=== PATIENT | male | born 1940 | race Caucasian/White ===

== ENCOUNTER 2017-02-18 07:10 | Day surgery (SDC) | payer BC ==
--- NOTE | ~2017-02-18 | EGD ---
EGD REPORT [facility] [address] [id number] NAME: KALEY DICKINSON : [birth year] STATUS : REG [facility] [place]#: [id number] AGE: 76 ADM/REG DATE : 02/18/17 MR#: [id number] REPORT SERV DATE: 02/18/17 DICTATED BY: KALEY LYONS DATE: 02/18/17 REPORT STATUS : Draft TRANSCRIBED BY: [facility] DATE: 02/18/17 [facility] Patient Name: Kaley Dickinson Date of : 1940 Attending MD: KALEY LYONS MD Procedure Date No Time: 02/18/2017 Procedure: Colonoscopy Indications: High risk colon cancer surveillance: Personal history of colonic polyps Referring MD: CHARISSA SOMMER Medicines: as per anesthesia Complications: No immediate complications. Procedure: Pre-Anesthesia Assessment: - ASA Grade Assessment: III - A patient with severe systemic disease. After I obtained informed consent, the scope was passed under direct vision. Throughout the procedure, the patient's blood pressure, pulse, and oxygen saturations were monitored continuously. The PCF [id number] was introduced through the anus and advanced to the cecum, identified by appendiceal orifice and ileocecal valve. The colonoscopy was somewhat difficult due to multiple diverticula in the colon, restricted mobility of the colon, significant looping and a tortuous colon. The patient tolerated the procedure. The quality of the bowel preparation was fair. Findings: The perianal and digital rectal examinations were normal. A sessile polyp was found in the ascending colon. The polyp was 9 mm in size. The polyp was removed with a jumbo cold forceps. Resection and retrieval were complete. A sessile polyp was found in the transverse colon. The polyp was 4 mm in size. The polyp was removed with a jumbo cold forceps. Resection and retrieval were complete. A sessile polyp was found in the rectum. The polyp was 8 mm in size. The polyp was removed with a jumbo cold forceps. Resection and retrieval were complete. Multiple small and large-mouthed diverticula were found in the sigmoid colon, in the descending colon, in the transverse colon and in the ascending colon. Internal hemorrhoids were found during endoscopy and were mild. Impression: - One 9 mm polyp in the ascending colon. Resected and retrieved. EGD REPORT [address] [address] NAME: KALEY DICKINSON : [birth year] STATUS : REG [facility] [place] PAT#: [id number] AGE: 76 ADM/REG DATE : 02/18/17 MR#: [id number] REPORT SERV DATE: 02/18/17 DICTATED BY: KALEY LYONS DATE: 02/18/17 REPORT STATUS : Draft TRANSCRIBED BY: [employer] DATE: 02/18/17 - One 4 mm polyp in the transverse colon. Resected and retrieved. - One 8 mm polyp in the rectum. Resected and retrieved. - Diverticulosis in the sigmoid colon, in the descending colon, in the transverse colon and in the ascending colon. - Internal hemorrhoids. Recommendation: - Await pathology results. Procedure Code(s): --- Professional --- 17456, Colonoscopy, flexible, proximal to splenic flexure; with biopsy, single or multiple Diagnosis Code(s): --- Professional --- K62.1, Rectal polyp D12.3, Benign neoplasm of transverse colon D12.2, Benign neoplasm of ascending colon K64.8, Other hemorrhoids K57.30, Diverticulosis of large intestine without perforation or abscess without bleeding Z86.010, Personal history of colonic polyps CPT copyright 2013 [employer]. All rights reserved. The codes documented in this report are preliminary and upon apartment leasing specialist review may be revised to meet current compliance requirements. KALEY LYONS MD 02/18/2017 12:47 PM This report has been signed electronically. Number of Addenda: 0 Note Initiated On: 02/18/2017 11:40 AM Scope Withdrawal Time 0 hours 28 minutes 34 seconds [address] [place] [address]
[~2017-02-18 07:10] MED LIST: ASAB PO; ASABAYER PO; ATEN25 PO; CENTRUM PO; CRESTOR20 MG PO; DSS PO; FISH OIL1200 MG PO; FISH-EPA1000 MG PO; FLAG500TAB PO; FLEX PO; GERD MED; HERBALS; IMDUR30 PO; IMDUR60 PO; ISOSORB DIN30 MG PO; LIDODERM TOP; LINZESS 290 M290 MCG PO; LIPITOR40 PO; LOP25 PO; LYRICA75 PO; MELA3 PO; METHOC500B PO; METHOC750B PO; MIRALAX POWDER1 PKT PO; MIRALAXPKT OR; MIRALAXPKT PO; MULTIPLE VIT PO; MULTIVIT/MIN PO; MULTIVITAMI1 PO; NEUR300 PO; NEXIUM40 PO; NITROGLYCERIN SL; NITROSTAT0.4 MG SL; NORV5 PO; P20 PO; PERCOCET1 TA4 PO; PLAVIX PO; PRIN2.5 PO; STOOL SOFTEN100 MG PO; STOOL SOFTENER PO; TOPXL25 PO; TRANSSCOP TOP; ULTRAM50 PO; VITAMIN C100 MG PO; VITAMIN C1000 MG PO; VITAMIN D1000 UNI1 PO; VITAMIN D31000 UNIT PO; VITD PO; VYTORIN 10/20 T1 TAB PO
[2017-06-21] MEDS ORDERED: NORCO1 TA1 PO (22:21)
[2017-06-21] MEDS ORDERED: FLUCON150 PO (22:22)
[2017-06-21] MEDS ORDERED: NITROSTAT0.4 MG SL (22:23)
[2017-06-25] MEDS ORDERED: LIPITOR40 PO (13:37)
[2017-06-25] MEDS ORDERED: PLAVIX PO (13:38)
== END 2017-02-18 23:59 | disposition home health service (06) ==
LOC: DMU 07:10
PROVIDERS: Internal Medicine Gastroenterology
PROC: 0DBP8ZX Excision of Rectum, Via Natural or Artificial Opening Endoscopic, Diagnostic (ICD-10-PCS; 2017-02-18)
PROC: 0DBL8ZX Excision of Transverse Colon, Via Natural or Artificial Opening Endoscopic, Diagnostic (ICD-10-PCS; 2017-02-18)
PROC: 0DBK8ZX Excision of Ascending Colon, Via Natural or Artificial Opening Endoscopic, Diagnostic (ICD-10-PCS; principal; 2017-02-18 10:00)
DX: D12.2 Benign neoplasm of ascending colon (principal); D12.8 Benign neoplasm of rectum; I10 Essential (primary) hypertension; G47.30 Sleep apnea, unspecified; Z95.1 Presence of aortocoronary bypass graft; K64.8 Other hemorrhoids; K57.30 Diverticulosis of large intestine without perforation or abscess without bleeding; Z86.010 Personal history of colon polyps; Z88.5 Allergy status to narcotic agent; Z87.891 Personal history of nicotine dependence; R56.9 Unspecified convulsions; E78.00 Pure hypercholesterolemia, unspecified; I25.10 Atherosclerotic heart disease of native coronary artery without angina pectoris; Z90.49 Acquired absence of other specified parts of digestive tract; Z98.890 Other specified postprocedural states
CPT/HCPCS: 88305

== ENCOUNTER 2017-03-13 23:36 | Emergency (ER) | payer BC ==
[2017-03-14 00:11] LABS: BASOPHILS 0.2 %; BASOPHILS ABSOLUTE 0.01 10/3/uL (0.0-0.16); EOSINOPHILS 4.4 %; EOSINOPHILS ABSOLUTE 0.21 10/3/uL (0.0-0.53); ER CBC TAT 0 Hrs 00 Mins; HEMATOCRIT 37.1 % (40.0-51.0); IMMATURE GRANULOCYTES 0.2 %; IMMATURE GRANULOCYTES ABSOLUTE 0.01 10/3/uL (0.0-0.11); LYMPHOCYTES 34.2 %; LYMPHOCYTES ABSOLUTE 1.64 10/3/uL (0.67-4.30); MEAN CORPUSCULAR HEMOGLOB 31.9 pg (26.0-34.0); MEAN CORPUSCULAR VOLUME 91.2 fL (80-100); MEAN PLATELET VOLUME 10.5 fL (9.2-13.0); MONOCYTES 7.9 %; MONOCYTES ABSOLUTE 0.38 10/3/uL (0.21-1.20); NEUTROPHILS 53.1 %; NEUTROPHILS ABSOLUTE 2.55 10/3/uL (2.02-8.40); PLATELET COUNT 142 10/3/uL (150-400); RBC DISTRIBUTION WIDTH 14.4 % (12.0-16.0); RED CELL COUNT 4.07 10/6/uL (4.7-6.1); WHITE BLOOD CELLS 4.8 10/3/uL (4.5-10.5)
[2017-03-14 00:15] LABS: MANUAL DIFF NO %
[2017-03-14 00:20] LABS: INTERNATIONAL NORMAL RATI 1.1 UNITS (-); PARTIAL THROMBO TIME 29.6 SEC (22.5-37.2); PROTIME (NOT ORD) 13.9 SEC (12.0-14.5)
[2017-03-14 00:28] LABS: CALCIUM, SERUM 8.9 MG/DL (8.5-10.4); CHEST PAIN PROFILE TAT 0 Hrs 00 Mins; CHLORIDE, SERUM 104 MMOL/L (96-112); CO2 (CARBON DIOXIDE) 29 MMOL/L (24-34); CREATININE 1.71 MG/DL (0.70-1.30); GFR AFRICAN AMERICAN 44 ML/MIN (>=60); GFR NON AFRICAN AMERICAN 38 ML/MIN (>=60); SODIUM, SERUM 139 MMOL/L (135-148); TROPONIN I <0.02 NG/ML (<0.05)
[2017-03-14 00:29] LABS: BUN (BLOOD UREA NITROGEN) 20 MG/DL (6-23); GLUCOSE, SERUM 145 MG/DL (60-99); POTASSIUM, SERUM 4.1 MMOL/L (3.5-5.3)
[2017-06-21] MEDS ORDERED: NORCO1 TA1 PO (22:21)
[2017-06-21] MEDS ORDERED: FLUCON150 PO (22:22)
[2017-06-21] MEDS ORDERED: NITROSTAT0.4 MG SL (22:23)
[2017-06-25] MEDS ORDERED: LIPITOR40 PO (13:37)
[2017-06-25] MEDS ORDERED: PLAVIX PO (13:38)
== END 2017-03-14 01:45 | disposition home or self-care (01) ==
LOC: ER 23:36
PROVIDERS: Emergency Medicine
DX: L03.116 Cellulitis of left lower limb (principal); N28.9 Disorder of kidney and ureter, unspecified; I25.2 Old myocardial infarction; I10 Essential (primary) hypertension; Z95.1 Presence of aortocoronary bypass graft; I73.9 Peripheral vascular disease, unspecified; Z88.8 Allergy status to other drugs, medicaments and biological substances; Z79.899 Other long term (current) drug therapy; Z79.82 Long term (current) use of aspirin
CPT/HCPCS: 71010; 80048; 83735; 84484; 85025; 85610; 85730; 93005; 93971; 96374; 99284